=== PATIENT | female | born 1940 | race Caucasian/White ===

== ENCOUNTER → 2020-05-14 14:14 | Outpatient (BNVA) | payer SELFPAY | PROVIDERS: PCP Family Medicine; Referring Provider Family Medicine; Visit Provider Internal Medicine | DX: G45.9 Transient cerebral ischemic attack, unspecified (principal); Z51.81 Encounter for therapeutic drug level monitoring; Z79.01 Long term (current) use of anticoagulants | CPT/HCPCS: 85610; 99211 ==

== ENCOUNTER → 2020-07-22 14:14 | Outpatient (BNVA) | payer BC, SELFPAY | PROVIDERS: PCP Family Medicine; Visit Provider Internal Medicine | DX: G45.9 Transient cerebral ischemic attack, unspecified (principal); Z51.81 Encounter for therapeutic drug level monitoring; Z79.01 Long term (current) use of anticoagulants | CPT/HCPCS: 85610; 99211 ==

== ENCOUNTER 2020-07-28 12:33 | Outpatient (REF) | payer BC, SELFPAY ==
[2020-07-28 13:54] LABS: MANUAL DIFF FLAG NO
[2020-07-28 14:03] LABS: Basophils Absolute Auto 0.1 X10*3/uL (0.0-0.2); Basophils Percent Auto 0.6 % (0-2); Eosinophils Absolute Auto 0.2 X10*3/uL (0.0-0.4); Eosinophils Percent Auto 2.8 % (0-4); Hematocrit 42.7 % (37-47); Hemoglobin 13.6 g/dl (12.0-16.0); Imm Gran Abs Auto 0.02 X10*3/uL (0.00-0.03); Imm Gran Pct Auto 0.2 % (0.0-0.4); Lymphocytes Absolute Auto 1.8 X10*3/uL (1.2-4.9); Lymphocytes Percent Auto 21.9 % (20-40); Mean Corpuscular HGB Conc 31.9 g/dl (31.0-35.0); Mean Corpuscular Hemoglobin 28.8 pg (27.0-33.0); Mean Corpuscular Volume 90.5 fL (80-98); Monocytes Absolute Auto 0.5 X10*3/uL (0.1-1.2); Monocytes Percent Auto 5.5 % (2-11); Neutrophils Absolute Auto 5.7 X10*3/uL (2.0-8.3); Platelet Count 310 X10*3/uL (160-400); Red Blood Count 4.72 X10*6/uL (4.20-5.50); Red Cell Distribution Width 14.6 % (11.0-16.0); White Blood Count 8.2 X10*3/uL (4.8-10.8)
[2020-07-28 14:54] LABS: Albumin Level 4.1 g/dL (3.5-5.0); Anion Gap 13 (12-20); Blood Urea Nitrogen 28 mg/dL (9-16); Calcium 9.7 mg/dL (8.4-10.2); Carbon Dioxide 28 mmol/L (22-29); Chloride 103 mmol/L (96-108); Estimated Glomerular Filt Rate 33; Magnesium 1.9 mg/dL (1.6-2.6); Phosphorus 3.4 mg/dL (2.7-4.5); Potassium 4.5 mmol/L (3.3-5.1); Sodium 139 mmol/L (135-145)
[2020-07-28 14:59] LABS: Vitamin D 25-OH Total 18.4 ng/mL (>30)
[2020-07-28 15:12] LABS: Renal w Reflex Lab Use Only Order verified
[2020-07-30 12:07] LABS: Calcium (PTHI) 9.9 mg/dL (8.6-10.4); PTHI 97 pg/mL (14-64)
== END 2020-07-28 12:34 | disposition home or self-care (01) ==
LOC: HO.LAB 12:33
PROVIDERS: Visit Provider Internal Medicine Nephrology
DX: I12.9 Hypertensive chronic kidney disease with stage 1 through stage 4 chronic kidney disease, or unspecified chronic kidney disease (principal); N18.30 Chronic kidney disease, stage 3 unspecified
CPT/HCPCS: 36415; 80051; 82040; 82306; 82310; 82565; 83735; 83970; 84100; 84520; 85025

== ENCOUNTER 2020-07-29 14:01 | Outpatient (REF) | payer BC, SELFPAY ==
[2020-07-29 15:26] LABS: Glucose Urine UA NEG (NEG); Leukocyte Esterase Urine NEG (NEG); Nitrite Urine NEG (NEG); PH 5.5 (5.0-8.0); Specific Gravity - Urine >= 1.030 (1.005-1.025); Urine Blood 1+ (NEG); Urine Ketones NEG (NEG); Urine Protein NEG (NEG-TRACE)
[2020-07-29 15:38] LABS: Creatinine Urine 123.59 mg/dL; Microalbum/Creatinine Ratio Ur 18.6 ug/mg cr; Total Protein Urine Random < 7 mg/dL (<12)
[2020-07-29 16:10] LABS: Appearance Urine CLEAR; Color Urine YELLOW
[2020-07-29 17:01] LABS: RBC Urine 0 /HPF (0); WBC Urine 0-2 /HPF (0-4)
== END 2020-07-29 14:02 | disposition home or self-care (01) ==
LOC: HO.LNP 14:01
PROVIDERS: Visit Provider Internal Medicine Nephrology
DX: G45.9 Transient cerebral ischemic attack, unspecified (principal); Z79.01 Long term (current) use of anticoagulants; Z51.81 Encounter for therapeutic drug level monitoring
CPT/HCPCS: 81001; 81003; 82043; 84156

== ENCOUNTER → 2020-09-09 15:58 | Outpatient (BNVA) | payer BC, SELFPAY | PROVIDERS: PCP Family Medicine; Visit Provider Internal Medicine | DX: G45.9 Transient cerebral ischemic attack, unspecified (principal); Z79.01 Long term (current) use of anticoagulants; Z51.81 Encounter for therapeutic drug level monitoring | CPT/HCPCS: 85610; 99211 ==

== ENCOUNTER → 2020-09-24 14:56 | Outpatient (BNVA) | payer BC, SELFPAY | PROVIDERS: PCP Family Medicine; Visit Provider Internal Medicine | DX: G45.9 Transient cerebral ischemic attack, unspecified (principal); Z79.01 Long term (current) use of anticoagulants; Z51.81 Encounter for therapeutic drug level monitoring | CPT/HCPCS: 85610; 99211 ==

== ENCOUNTER → 2020-10-29 13:59 | Outpatient (BNVA) | payer BC, SELFPAY | PROVIDERS: PCP Family Medicine; Visit Provider Internal Medicine | DX: Z86.73 Personal history of transient ischemic attack (TIA), and cerebral infarction without residual deficits (principal); Z51.81 Encounter for therapeutic drug level monitoring; Z79.01 Long term (current) use of anticoagulants | CPT/HCPCS: 85610; 99211 ==

== ENCOUNTER → 2020-11-26 14:04 | Outpatient (BNVA) | payer BC, SELFPAY | PROVIDERS: PCP Family Medicine; Visit Provider Internal Medicine | DX: Z86.73 Personal history of transient ischemic attack (TIA), and cerebral infarction without residual deficits (principal); Z51.81 Encounter for therapeutic drug level monitoring; Z79.01 Long term (current) use of anticoagulants | CPT/HCPCS: 85610; 99211 ==

== ENCOUNTER → 2020-12-24 15:22 | Outpatient (BNVA) | payer BC, SELFPAY | PROVIDERS: PCP Family Medicine; Visit Provider Internal Medicine | DX: Z86.73 Personal history of transient ischemic attack (TIA), and cerebral infarction without residual deficits (principal); Z51.81 Encounter for therapeutic drug level monitoring; Z79.01 Long term (current) use of anticoagulants | CPT/HCPCS: 85610; 99211 ==

== ENCOUNTER → 2021-01-28 14:51 | Outpatient (BNVA) | payer BC, SELFPAY | PROVIDERS: PCP Internal Medicine; Visit Provider Internal Medicine | DX: Z86.73 Personal history of transient ischemic attack (TIA), and cerebral infarction without residual deficits (principal); Z51.81 Encounter for therapeutic drug level monitoring; Z79.01 Long term (current) use of anticoagulants | CPT/HCPCS: 85610; 99211 ==

== ENCOUNTER 2021-02-10 12:05 | Outpatient (REF) | payer BC, SELFPAY ==
[2021-02-10 12:47] LABS: MANUAL DIFF FLAG NO
[2021-02-10 12:50] LABS: Basophils Absolute Auto 0.1 X10*3/uL (0.0-0.2); Basophils Percent Auto 0.6 % (0-2); Eosinophils Absolute Auto 0.2 X10*3/uL (0.0-0.4); Eosinophils Percent Auto 2.7 % (0-4); Hematocrit 41.9 % (37-47); Hemoglobin 13.4 g/dl (12.0-16.0); Imm Gran Abs Auto 0.03 X10*3/uL (0.00-0.03); Imm Gran Pct Auto 0.4 % (0.0-0.4); Lymphocytes Absolute Auto 1.9 X10*3/uL (1.2-4.9); Lymphocytes Percent Auto 22.4 % (20-40); Mean Corpuscular Hemoglobin 29.1 pg (27.0-33.0); Mean Corpuscular Volume 90.9 fL (80-98); Mean Platelet Volume 9.2 fL (9.4-12.3); Monocytes Absolute Auto 0.6 X10*3/uL (0.1-1.2); Neutrophils Absolute Auto 5.6 X10*3/uL (2.0-8.3); Neutrophils Percent Auto 66.9 % (45-73); Platelet Count 285 X10*3/uL (160-400); Red Blood Count 4.61 X10*6/uL (4.20-5.50); Red Cell Distribution Width 14.6 % (11.0-16.0); White Blood Count 8.4 X10*3/uL (4.8-10.8)
[2021-02-10 13:14] LABS: Alanine Aminotransferase 25 U/L (0-31); Alkaline Phosphatase 105 U/L (39-117); Anion Gap 13 (12-20); Aspartate Amino Transferase 18 U/L (5-31); Bilirubin Total 0.3 mg/dL (0.0-1.0); Blood Urea Nitrogen 32 mg/dL (9-16); Calcium 9.6 mg/dL (8.4-10.2); Carbon Dioxide 26 mmol/L (22-29); Chloride 105 mmol/L (96-108); Estimated Glomerular Filt Rate 27; Glucose Random 172 mg/dL (60-115); Magnesium 2.2 mg/dL (1.6-2.6); Phosphorus 3.3 mg/dL (2.7-4.5); Sodium 139 mmol/L (135-145); Total Protein 6.4 g/dL (6.5-8.0)
[2021-02-10 13:34] LABS: Vitamin D 25-OH Total 19.1 ng/mL (>30)
[2021-02-10 13:56] LABS: Appearance Urine CLEAR; Color Urine YELLOW; Glucose Urine UA NEG (NEG); Leukocyte Esterase Urine NEG (NEG); Nitrite Urine NEG (NEG); Urine Blood TRACE (NEG); Urine Ketones NEG (NEG); Urine Protein NEG (NEG-TRACE)
[2021-02-10 14:19] LABS: Renal Epithelial Cells Urine TRACE /LPF; Squamous Epithelial Cell Urine TRACE /LPF
[2021-02-10 14:28] LABS: Creatinine Urine 81.92 mg/dL; Microalbum/Creatinine Ratio Ur 14.6 ug/mg cr; Total Protein Urine Random < 7 mg/dL (<12)
[2021-02-13 06:46] LABS: Calcium (PTHI) 9.3 mg/dL (8.6-10.4); PTHI 110 pg/mL (14-64)
== END 2021-02-10 12:06 | disposition home or self-care (01) ==
LOC: HO.LAB 12:05
PROVIDERS: PCP Internal Medicine; Visit Provider Internal Medicine Nephrology
DX: I12.9 Hypertensive chronic kidney disease with stage 1 through stage 4 chronic kidney disease, or unspecified chronic kidney disease (principal); N18.32 Chronic kidney disease, stage 3b
CPT/HCPCS: 36415; 80053; 81001; 81003; 82043; 82306; 83735; 83970; 84100; 84156; 85025

== ENCOUNTER → 2021-03-04 14:39 | Outpatient (BNVA) | payer BC, SELFPAY | PROVIDERS: PCP Internal Medicine; Visit Provider Internal Medicine | DX: Z86.73 Personal history of transient ischemic attack (TIA), and cerebral infarction without residual deficits (principal); Z51.81 Encounter for therapeutic drug level monitoring; Z79.01 Long term (current) use of anticoagulants | CPT/HCPCS: 85610; 99211 ==

== ENCOUNTER → 2021-05-09 14:51 | Outpatient (BNVA) | payer BC, SELFPAY | PROVIDERS: PCP Internal Medicine; Visit Provider Internal Medicine | DX: Z86.73 Personal history of transient ischemic attack (TIA), and cerebral infarction without residual deficits (principal); Z51.81 Encounter for therapeutic drug level monitoring; Z79.01 Long term (current) use of anticoagulants | CPT/HCPCS: 85610; 99211 ==

== ENCOUNTER → 2021-06-16 15:21 | Outpatient (BNVA) | payer BC, SELFPAY | PROVIDERS: PCP Internal Medicine; Visit Provider Internal Medicine | DX: Z86.73 Personal history of transient ischemic attack (TIA), and cerebral infarction without residual deficits (principal); Z51.81 Encounter for therapeutic drug level monitoring; Z79.01 Long term (current) use of anticoagulants | CPT/HCPCS: 85610; 99211 ==

== ENCOUNTER → 2021-07-26 14:55 | Outpatient (BNVA) | payer BC, SELFPAY | PROVIDERS: PCP Internal Medicine; Visit Provider Internal Medicine | DX: Z86.73 Personal history of transient ischemic attack (TIA), and cerebral infarction without residual deficits (principal); Z51.81 Encounter for therapeutic drug level monitoring; Z79.01 Long term (current) use of anticoagulants | CPT/HCPCS: 85610; 99211 ==

== ENCOUNTER → 2021-09-01 14:39 | Outpatient (BNVA) | payer BC, SELFPAY | PROVIDERS: PCP Internal Medicine; Visit Provider Internal Medicine | DX: Z86.73 Personal history of transient ischemic attack (TIA), and cerebral infarction without residual deficits (principal); Z51.81 Encounter for therapeutic drug level monitoring; Z79.01 Long term (current) use of anticoagulants | CPT/HCPCS: 85610; 99211 ==

== ENCOUNTER → 2021-10-10 13:24 | Outpatient (BNVA) | payer BC, SELFPAY | PROVIDERS: PCP Internal Medicine; Visit Provider Internal Medicine | DX: G45.9 Transient cerebral ischemic attack, unspecified (principal); Z79.01 Long term (current) use of anticoagulants; Z51.81 Encounter for therapeutic drug level monitoring | CPT/HCPCS: 85610; 99211 ==

== ENCOUNTER → 2021-10-27 14:02 | Outpatient (BNVA) | payer BC, SELFPAY | PROVIDERS: PCP Internal Medicine; Visit Provider Internal Medicine | DX: G45.9 Transient cerebral ischemic attack, unspecified (principal); Z79.01 Long term (current) use of anticoagulants; Z51.81 Encounter for therapeutic drug level monitoring | CPT/HCPCS: 85610; 99211 ==

== ENCOUNTER → 2021-12-26 14:03 | Outpatient (BNVA) | payer BC, SELFPAY | PROVIDERS: PCP Internal Medicine; Visit Provider Internal Medicine | DX: G45.9 Transient cerebral ischemic attack, unspecified (principal); Z51.81 Encounter for therapeutic drug level monitoring; Z79.01 Long term (current) use of anticoagulants | CPT/HCPCS: 85610; 99211 ==

== ENCOUNTER → 2022-01-27 14:05 | Outpatient (BNVA) | payer BC, SELFPAY | PROVIDERS: PCP Internal Medicine; Visit Provider Internal Medicine | DX: G45.9 Transient cerebral ischemic attack, unspecified (principal); Z51.81 Encounter for therapeutic drug level monitoring; Z79.01 Long term (current) use of anticoagulants | CPT/HCPCS: 85610; 99211 ==

== ENCOUNTER 2022-04-25 15:23 | Outpatient (REF) | payer BC, SELFPAY ==
[2022-04-25 15:56] LABS: MANUAL DIFF FLAG NO
[2022-04-25 16:50] LABS: Basophils Absolute Auto 0.1 X10*3/uL (0.0-0.2); Basophils Percent Auto 0.8 % (0-2); Eosinophils Absolute Auto 0.2 X10*3/uL (0.0-0.4); Eosinophils Percent Auto 2.5 % (0-4); Hematocrit 43.1 % (37.0-47.0); Hemoglobin 13.9 g/dl (12.0-16.0); Imm Gran Abs Auto 0.02 X10*3/uL (0.00-0.03); Imm Gran Pct Auto 0.2 % (0.0-0.4); Lymphocytes Absolute Auto 1.9 X10*3/uL (1.2-4.9); Lymphocytes Percent Auto 23.2 % (20-40); Mean Corpuscular HGB Conc 32.3 g/dl (31.0-35.0); Mean Corpuscular Hemoglobin 29.1 pg (27.0-33.0); Mean Corpuscular Volume 90.2 fL (80.0-98.0); Mean Platelet Volume 9.6 fL (9.4-12.3); Monocytes Absolute Auto 0.5 X10*3/uL (0.1-1.2); Monocytes Percent Auto 5.8 % (2-11); Neutrophils Absolute Auto 5.6 x10*3/uL (2.0-8.3); Neutrophils Percent Auto 67.5 % (45-73); Platelet Count 288 X10*3/uL (160-400); Red Blood Count 4.78 X10*6/uL (4.20-5.50); Red Cell Distribution Width 14.2 % (11.0-16.0); White Blood Count 8.3 X10*3/uL (4.8-10.8)
[2022-04-25 16:51] LABS: Appearance Urine Clear; Color Urine Yellow; Glucose Urine UA Negative (Negative); Leukocyte Esterase Urine Small (1+) (Negative); Nitrite Urine Negative (Negative); UMIC TRIGGER UA YES; Urine Blood Trace (Negative); Urine Ketones Trace mg/dL (Negative); Urine Protein Negative (Neg-Trace)
[2022-04-25 16:56] LABS: Bacteria Urine None Seen (None Seen); Hyaline Casts Urine 0-2 /LPF (0-2); Squamous Epithelial Cell Urine 0-2 /HPF (0-2)
[2022-04-25 17:04] LABS: Albumin Level 4.2 g/dL (3.5-5.0); Anion Gap 15 (12-20); Blood Urea Nitrogen 34 mg/dL (9-16); Calcium 9.9 mg/dL (8.4-10.2); Carbon Dioxide 24 mmol/L (22-29); Chloride 105 mmol/L (96-108); Estimated Glomerular Filt Rate 29; Magnesium 2.1 mg/dL (1.6-2.6); Phosphorus 3.4 mg/dL (2.7-4.5); Potassium 4.7 mmol/L (3.3-5.1); Sodium 139 mmol/L (135-145)
[2022-04-25 17:57] LABS: Creatinine Urine 146.24 mg/dL; Microalbum/Creatinine Ratio Ur 27.3 ug/mg cr; Total Protein Urine Random 13 mg/dL (<12)
[2022-04-28 13:06] LABS: Calcium (PTHI) 9.9 mg/dL (8.6-10.4); PTHI 115 pg/mL (16-77)
[2022-05-02 00:48] LABS: VITAMIN D (1,25 OH) D3 31 pg/mL; Vit D (1,25-Dihydroxy) Total 31 pg/mL (18-72); Vitamin D (1,25 OH) D2 <8 pg/mL
== END 2022-04-25 15:24 | disposition home or self-care (01) ==
LOC: HO.LAB 15:23
PROVIDERS: PCP Internal Medicine; Visit Provider Internal Medicine Nephrology
DX: I12.9 Hypertensive chronic kidney disease with stage 1 through stage 4 chronic kidney disease, or unspecified chronic kidney disease (principal); N18.32 Chronic kidney disease, stage 3b; N25.0 Renal osteodystrophy
CPT/HCPCS: 36415; 80051; 81001; 82040; 82043; 82310; 82565; 82652; 83735; 83970; 84100; 84156; 84520; 85025; 87086

== ENCOUNTER 2024-02-19 13:52 | Outpatient (REF) | payer BC, SELFPAY ==
[2024-02-19 14:22] LABS: MANUAL DIFF FLAG NO
[2024-02-19 15:13] LABS: Basophils Percent Auto 0.4 % (0-2); Eosinophils Absolute Auto 0.2 X10*3/uL (0.0-0.4); Eosinophils Percent Auto 1.9 % (0-4); Hemoglobin 13.4 g/dl (12.0-16.0); Imm Gran Abs Auto 0.03 X10*3/uL (0.00-0.03); Imm Gran Pct Auto 0.4 % (0.0-0.4); Lymphocytes Absolute Auto 1.6 X10*3/uL (1.2-4.9); Lymphocytes Percent Auto 18.5 % (20-40); Mean Corpuscular HGB Conc 32.7 g/dl (31.0-35.0); Mean Corpuscular Hemoglobin 30.2 pg (27.0-33.0); Mean Corpuscular Volume 92.6 fL (80.0-98.0); Mean Platelet Volume 9.3 fL (9.4-12.3); Monocytes Absolute Auto 0.6 X10*3/uL (0.1-1.2); Monocytes Percent Auto 6.8 % (2-11); Neutrophils Absolute Auto 6.2 x10*3/uL (2.0-8.3); Platelet Count 297 X10*3/uL (160-400); Red Blood Count 4.43 X10*6/uL (4.20-5.50); Red Cell Distribution Width 14.6 % (11.0-16.0); White Blood Count 8.6 X10*3/uL (4.8-10.8)
[2024-02-19 15:22] LABS: Appearance Urine Clear; Color Urine Yellow; Glucose Urine UA Negative (Negative); Leukocyte Esterase Urine Negative (Negative); Nitrite Urine Negative (Negative); PH 5.5 (5.0-9.0); Urine Blood Negative (Negative); Urine Ketones Negative (Negative); Urine Protein Negative (Neg-Trace)
[2024-02-19 15:48] LABS: Albumin Level 4.2 g/dL (3.5-5.0); Anion Gap 12 (12-20); Blood Urea Nitrogen 34 mg/dL (9-16); Calcium 10.2 mg/dL (8.4-10.2); Carbon Dioxide 26 mmol/L (22-29); Chloride 107 mmol/L (96-108); Estimated Glomerular Filt Rate 31; Magnesium 2.2 mg/dL (1.6-2.6); Phosphorus 3.4 mg/dL (2.7-4.5); Sodium 140 mmol/L (135-145)
[2024-02-19 15:59] LABS: Parathyroid Hormone Intact 131.8 pg/mL (8.7-77.1)
[2024-02-19 16:02] LABS: Creatinine Urine 76.29 mg/dL; Protein/Creatinine Ratio, Ur 0.12 (<0.2); Total Protein Urine Random 9 mg/dL (<12)
[2024-02-24 05:34] LABS: VITAMIN D (1,25 OH) D3 37 pg/mL; Vit D (1,25-Dihydroxy) Total 37 pg/mL (18-72); Vitamin D (1,25 OH) D2 <8 pg/mL
== END 2024-02-19 13:53 | disposition home or self-care (01) ==
LOC: HO.LAB 13:52
PROVIDERS: PCP Internal Medicine; Visit Provider Internal Medicine Nephrology
DX: N18.4 Chronic kidney disease, stage 4 (severe) (principal); N25.0 Renal osteodystrophy; I12.9 Hypertensive chronic kidney disease with stage 1 through stage 4 chronic kidney disease, or unspecified chronic kidney disease
CPT/HCPCS: 36415; 80051; 81003; 82040; 82310; 82565; 82570; 82652; 83735; 83970; 84100; 84156; 84520; 85025; 87086

== ENCOUNTER 2024-12-18 15:10 | Outpatient (REF) | payer BC, SELFPAY ==
[2024-12-18 15:35] LABS: MANUAL DIFF FLAG NO
--- OUTSIDE RECORDS SUMMARY | 2024-12-18 15:55 | XMS_ITS | Encounter Summary ---
Author Organization [facility] Address [address] [facility] [address] [place] [address] Phone Care Team Providers Care Flap Curer Name Role Phone Paola Maciel MD Primary Care Provider [phone]- [phone] Encounter Details Date Type Department Care Team (Late Contact Info) Description 08/23/2021 Telephone [facility] [address] [place] [address] [place] [phone] Vivek Almaraz MD [address] [facility] [address] [place] [phone] Social History Tobacco Use Types Packs/Day Years Used Date Smoking Tobacco: Former Cigarettes Q uit: 06/04/1966 Smokeless Tobacco: Never Comments:Smoking History Inf o:Every day Alcohol Use Standard Drinks/Week Comments Yes 0 (1 standard drink = 0.6 oz pure alcohol) Alcoholic Drinks/day: Occasional social drink Comments Unknown Sex and Gender Information Value Date Recorded Sex Assigned at Not on file Legal Sex Female 4:44 PM EST Gender Identity Not on file Sexual Orientation Not on file documented as of this encounter Miscellaneous Notes * Telephone Encounter - Sheryl Goodwin - 08/23/2021 3:44 PM EDT [facility] called, they are unable to fill farxiga for the pt because it needs a PA. Thank you documented in this encounter Plan of Treatment Upcoming Encounters Date Type Department Care Team (Late st Contact Info) Description 12/22/2024 2:00 PM EDT Office Visit [facility] [address] [place] [address] Vivek Almaraz MD [address] [facility] [address] [place] [address] documented as of this encounter Visit Diagnoses Not on filedocumented in this encounter Care Teams Flap Curer Relationship Specialty Start Date End Date Paola Maciel MD [address] [place] [address], [address] [place] [address] PCP - General Internal Medicine 02/14/21 documented as of this encounter
--- OUTSIDE RECORDS SUMMARY | 2024-12-18 15:55 | XMS_ITS | Patient Health Record ---
Author Organization [facility] lisa [place] Address [address] [place] [place] [address] Care Team Providers Care Ceo Na Name Role Phone Maciel, Paola Primary Care Provider Unavailabl e Brianda Uriostegui Unavailable [phone] Paul Dewey MD Unavailable Unavailable Allergies Allergen (clinical drug ingredient) Drug/Non Drug Allergy documented on EMR Reaction Allergy Type Onset Date Status adhesive tape (uncoded) rash Allergy Active Latex latex (uncoded) rash Allergy Acti ve Reason For Referral No Information Medications Medication SIG (Take, Route, Frequency, Duration) Notes Start Date End Date Status Synthroid 125 MCG Orally Once a day Active buPROPion HCl ER (XL) 450 MG Orally Active Losartan Potassium 25 MG Orally Once a day Active Atorvastatin Calcium 40 MG Orally Once a day Active ZyrTEC Active Ketorolac Tromethamine Not-Taking Jantoven 5 MG Orally Once a day Not-Taking Warfarin Sodium 5 MG 1 tablet Orally Onc e a day; Duration: 30 day(s) Active BuSpar Active PEG-3350/Electrolytes Not-Taking Social History Tobacco Use: Social History Observation Description Date Details (start date - stop date) Former Smoker NA - NA Tobacco Use/Smoking Question Answer Notes Are you a: former smoker Additional Findings: Tobacco Non-User Current no n-smoker Alcohol Screen Question Answer Notes Did you have a drink containing alcohol in the p ast year? No Points 0 Interpretation Negative Tobacco use other than smoking: Question Answer Notes Are you an other tobacco user? 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) Active confirmed Problem Equinus contracture of right ankle (M24.571) Active confirmed Problem PlantarFlexion o f metatarsal of left foot (M21.6X2) Active confirmed Plan Of Treatment Pending Test Test Name Order Date [id number] NAIL, 6 OR MORE 10/03/2018 [id number] NAIL, 6 OR MORE 01/27/2019 [id number] NAIL, 6 OR MORE 04/28/2019 [id number] DYSTROPHIC NAILS ANY # Insurance Providers Payer Name Payer Address Payer Phone Subscriber Number Group Number Insured Name Patient Relationship to Insured Coverage Start Date Coverage End Date [facility] [address] [place] [address] [id number] Shanae Mayorga Self - patient is the insured Medical (General) History Medical History History ICD Code Anxiety Back,Hip,and Knee pain CAD (Cholesterol) Cataracts Depression Gall bladder problems Headaches/Migraines Hypertension Kidney disease Psoriasis/eczema chronic sinusitis Stroke thyroid Measles Mumps Chicken pox Vertigo Surgical History Surgery Date(Month/Year) cataracts 2018 gall bladder thyroid tonsils 194 ovarian tumor 1961 appendix 1961
[2024-12-18 15:57] LABS: Hematocrit 43.1 % (37.0-47.0); Hemoglobin 13.6 g/dl (12.0-16.0); Imm Gran Abs Auto 0.03 X10*3/uL (0.00-0.03); Imm Gran Pct Auto 0.3 % (0.0-0.4); Lymphocytes Absolute Auto 1.7 X10*3/uL (1.2-4.9); Mean Corpuscular HGB Conc 31.6 g/dl (31.0-35.0); Mean Corpuscular Hemoglobin 28.2 pg (27.0-33.0); Mean Corpuscular Volume 89.4 fL (80.0-98.0); NRBC Abs Auto 0.000 X10*3/uL (0.0-0.012); NRBC Pct Auto 0.0 /100WBC (0.0-0.2); Platelet Count 303 X10*3/uL (160-400); Red Blood Count 4.82 X10*6/uL (4.20-5.50); White Blood Count 8.6 X10*3/uL (4.8-10.8)
[2024-12-18 16:48] LABS: PTH Intact Intraoperative 195.6 pg/mL (8.7-77.1)
[2024-12-18 16:51] LABS: Albumin Level 4.4 g/dL (3.5-5.0); Anion Gap 13 (12-20); Blood Urea Nitrogen 37 mg/dL (9-16); Calcium 9.4 mg/dL (8.4-10.2); Carbon Dioxide 25 mmol/L (22-29); Chloride 105 mmol/L (96-108); Estimated Glomerular Filt Rate 28; Magnesium 2.5 mg/dL (1.6-2.6); Potassium 4.9 mmol/L (3.3-5.1); Sodium 138 mmol/L (135-145)
== END 2024-12-18 15:11 | disposition home or self-care (01) ==
LOC: HO.LAB 15:10
PROVIDERS: PCP Internal Medicine; Visit Provider Internal Medicine Nephrology
DX: E11.22 Type 2 diabetes mellitus with diabetic chronic kidney disease (principal); I12.9 Hypertensive chronic kidney disease with stage 1 through stage 4 chronic kidney disease, or unspecified chronic kidney disease; N18.32 Chronic kidney disease, stage 3b; N25.0 Renal osteodystrophy
CPT/HCPCS: 36415; 80051; 82040; 82306; 82310; 82565; 83735; 83970; 84100; 84520; 85025

== ENCOUNTER 2024-12-19 12:13 | Outpatient (REF) | payer BC, SELFPAY ==
--- OUTSIDE RECORDS SUMMARY | 2024-12-19 12:17 | XMS_ITS | Clinical Summary ---
Author Organization [facility] Address [address] [address] Care Team Providers Care Behaviour Support Teacher Name Role Phone Paola Maciel MD Primary Care Provider +1- [phone] Allergies Active Allergy Reactions Criticality Noted Date Comments Levonorgestrel-Ethinyl Estrad Other (see comments) Low 09/25/2019 Medications buPROPion XL (WELLBUTRIN XL) 300 MG 24 hr tablet Take 1 tablet by mouth 1 (one) time each day 150 mg Active atorvastatin (LIPITOR) 20 MG tablet Take 40 mg by mouth daily Active busPIRone (BUSPAR) 5 MG tablet Take 7.5 mg by mouth in the morning. Active Cetirizine HCl (ZyrTEC ALLERGY) 10 MG capsule Take 1 capsule by mouth 1 (one) time each day Active docusate sodium (COLACE) 50 MG capsule Take by mouth twice a day Active levothyroxine (SYNTHROID, LEVOTHROID) 125 MCG tablet Take 1 tablet by mouth 1 (one) time each day 06/16/2020 Active losartan (COZAAR) 50 MG tablet Take 1 tablet by mouth 1 (one) time each day 06/16/2020 Active clopidogrel (PLAVIX) 75 MG tablet Take 75 mg by mouth 1 (one) time each day 04/07/2022 Active letrozole (FEMARA) 2.5 MG chemo tablet Take 2.5 mg by mouth in the morning. 07/13/2023 Active Active Problems Problem Noted Date Diagnosed Date Type 2 diabetes mellitus wit h diabetic chronic kidney disease 02/25/2024 Renal osteodystrophy 08/23/2021 Chronic kidney disease, stage 4 (severe) 021 Chronic kidney disease stage 3 08/05/2020 Hypertensive renal disease 08/05/2020 Stage 3b chronic kidney disease 08/05/2020 Ataxia 09/25/2019 Overview (08/05/2020): Last Assessment & Plan: Patient with a history of remote stroke in the past on chronic Coumadin without any head trauma with some weakness to almost about a week sounds like his left-sided weakness causing some lurching doubt its really a true cerebellar type infarct probably just due to weakness on the left side may be exacerbated by not exercising for quite some time will check B12 level comp panel if things worsen did discuss getting imaging as it is she probably had a mild right-sided stroke with left- sided neglect and could benefit from VNA and home physical therapy if things worsen especially if she starts falling since she is on Coumadin. Would need video [id number] for that to occur Left hemiparesis 09/25/2019 Overview (08/05/2020): Last Assessment & Plan: Story line for the patient sound like he has left-sided weakness leg more so than the arm but it is probably has some neglect from by right-sided insult in the brain combination old and may be somewhat new or just exacerbated by aging and lack of exercise. She will contact us if things get worse to consider imaging Disorder of breast 03/07/2018 Overview (08/05/2020): Last Assessment & Plan: Additional skin lesion that she is concerned about an upper medial right breast appears to be a cystic lesion similar to the sebaceous cyst in the upper left chest but is not red nontender does seem to have a central pore off to the side advised watch and wait without any squeezing the lesion. Sebaceous cyst 03/07/2018 Overview (08/05/2020): Last Assessment & Plan: Lengthy discussion with patient the fact that she is not going on culture by just had more inflammation than true infection did recommend is warm compresses to the area and can stop the antibiotic since it is bothering her. Did discuss this this is in a bad area which pressure can cause it to reactivate if continues to be a problem we can do an excision but this time would usually recommend still gets inflamed the second time before doing that Incipient senile cataract 12/10/2017 Overview (08/05/2020): Last Assessment & Plan: Patient for upcoming bilateral cataract surgery blood pressure well controlled. Also has depression well-controlled and hyperlipidemia and a very well-controlled hypothyroidism. She also has chronic Coumadin because of a stroke in 2004 while she was on aspirin. Need to stop medication prior to surgery Major depressive disorder 09/20/2017 Overview (08/05/2020): Last Assessment & Plan: Patient with doing's well with the medications provided by psychiatry and a psychologist regular visits we'll settle thoughts recommended increase regular exercise Renal insufficiency 09/20/2017 Overview (08/05/2020): Last Assessment & Plan: Reviewed labs with patient no signs or symptoms of obstruction or UTI Transient cerebral ischemia 08/23/2017 Hyperlipidemia 08/09/2017 Overview (08/05/2020): Last Assessment & Plan: On atorvastatin without any myalgias overdue for lipids Hypertensive disorder 08/09/2017 Overview (08/05/2020): Last Assessment & Plan: Pt for follow-up on blood pressure doing very well with medications very compliant also still on Coumadin for stroke prevention as she is had one in the past no bleeding problems denies chest pain or shortness of breath excellent blood pressure results continue same medication Hypothyroidism 08/09/2017 Overview (08/05/2020): Last Assessment & Plan: Medium high dose of Synthroid overdue for TSH but appears to be euthyroid Encounters Date Type Department Care Team Description 10/24/2024 Orders Only [facility] [address] [place] [address] Vivek Almaraz MD Stage 3b chronic kidney disease (HCC); Renal osteodystrophy; Hypertensive disorder; Type 2 diabetes mellitus with diabetic chronic kidney disease (HCC) from Last 3 Months Immunizations Immunization Administration Dates Next Due Influenza Split High Dose Pr eservative Free IM 03/07/2018,03/16/2017,02/03/2016 Influenza TIV (IM) 03/04/2015,03/13/2014 Influenza Vaccine, Quadrivalent, Adjuvanted 03/04 Pfizer SARS-COV-2 07/08/2020,06/17/2020 Pneumococcal Conjugate 13-Valent 04/08/2015,03/05 Pneumococcal Polysaccharide 03/27/2014 Td 01/11/2021 Zoster 09/20/2017 Family History Medical History Relation Comments Diabetes Child Heart disease Father Kidney disease Sibling Relation Status Comments Child Father Sibling Social History Tobacco Use Types Packs/Day Years [...] on file Sexual Orientation Not on file Last Filed Vital Signs Vital Sign Reading Time Taken Comments Blood Pressure 140/60 02/25/2024 4:02 PM EDT Pulse 74 02/25/2024 4:02 PM EDT Temperature - - Respiratory Rate - - Oxygen Saturation 97% 02/25/2024 4:02 PM EDT Inhaled Oxygen Concentration - - Weight 81.6 kg (180 lb) 02/25/2024 4:02 PM EDT Height 160 cm (5' 3 ) 02/14/2021 2:47 PM EDT Body Mass Index 31.89 02/14/2021 2:47 PM EDT Plan of Treatment Upcoming Encounters Date Type Department Care Team (Late st Contact Info) Description 12/22/2024 2:00 PM EDT Office Visit [facility] [address] [place] [address] Vivek Almaraz MD [address] [facility] [address] [place] [address] Health Maintenance Due Date Last Done Comments Diabetes: Ophthalmology Exam 02/25/2024 Diabetes: Pedal Pulse Checked 02/25/2024 Diabetes: Sensory Foot Exam 02/25/2024 Diabetes: Visual Foot Exam 02/25/2024 Diabetes: Hemoglobin A1C 09/15/2024 06/17/2024 Influenza Vaccine (#1) 2025 , 03/17/2022, 03/07/2018, Additional history exists Pneumococcal Vaccine: 50+ Years Completed 04/08/2015, 03/26/2015, 03/27/2014 Pneumococcal Vaccine: Peds (0 to 5 Years) and At-Risk Patients (6 to 49 Years) Discontinued 04/08/2015, 03/26/2015, 03/27/2014 Hepatitis B Vaccine Aged Out No longe r eligible based on patient's age to complete this topic Procedures Procedure Name Priority Date/Time Associated Diagnosis Comments CREATININE, BLOOD Routine 12/18/2024 3:3 4 PM EDT BUN Routine 12/18/2024 3:34 PM EDT ELECTROLYTE PANEL Routine 12/18/2024 3:3 4 PM EDT PTH, INTRAOPERATIVE Routine 12/18/2024 3 :34 PM EDT CBC AND DIFFERENTIAL Routine 12/18/2024 3:34 PM EDT CALCIUM Routine 12/18/2024 3:34 PM EDT Stage 3b chronic kidney disease (HCC) Renal osteodystrophy Hypertensive disorder Type 2 diabetes mellitus with diabetic chronic kidney disease (HCC) ALBUMIN Routine 12/18/2024 3:34 PM EDT Stage 3b chronic kidney disease (HCC) Renal osteodystrophy Hypertensive disorder Type 2 diabetes mellitus with diabetic chronic kidney disease (HCC) MAGNESIUM Routine 12/18/2024 3:34 PM EDT Stage 3b chronic kidney disease (HCC) Renal osteodystrophy Hypertensive disorder Type 2 diabetes mellitus with diabetic chronic kidney disease (HCC) PHOSPHATE ( PHOSPHORUS) Routine 12/18/2024 3:34 PM EDT Stage 3b chronic kidney disease (HCC) Renal osteodystrophy Hypertensive disorder Type 2 diabetes mellitus with diabetic chronic kidney disease (HCC) VITAMIN D 25 HYDROXY Routine 12/18/2024 3:34 PM EDT Stage 3b chronic kidney disease (HCC) Renal osteodystrophy Hypertensive disorder Type 2 diabetes mellitus with diabetic chronic kidney disease (HCC) from Last 3 Months Results * (ABNORMAL) PTH, Intraoperative (12/18/2024 3:34 PM EDT) Intraoperative PTH 195.6(H) 8.7 - 77.1 pg/mL See order comments 12/18/2024 3:34 PM EDT 12/18/2024 3:34 PM EDT Vivek Almaraz MD LAB BLOOD ORDERABLES Final Re sult Performing Organization Address [facility] Co de Phone Number [place] See order comments [place] [address] * (ABNORMAL) Creatinine (12/18/2024 3:34 PM EDT) Creatinine Serum 1.73(H) 0.5 - 1.4 mg/dL See order comments eGFR (Calc) 28 See orde r comments Comment: Chronic Kidney Disease: Estimated GFR < 60 mL/min/1.73m2 Severe Kidney Disease: Estimated GFR < 15 mL/min/1.73m2 12/18/2024 3:34 PM EDT 12/18/2024 3:34 PM EDT Vivek Almaraz MD LAB BLOOD ORDERABLES Final Re sult Performing Organization Address [facility] Co de Phone Number [place] See order comments [place] [address] * Vitamin D 25 Hydroxy (12/18/2024 3:34 PM EDT) Vitamin D, 25-Hydroxy 47.1 >30 ng/mL See order comments Comment: Health Based Reference Values* < 20 ng/mL Deficient 20-30 ng/mL Insufficient > 30 ng/mL Sufficient *Krystian GONSALEZ. N Engl J Med. 2007;357:266-280 There is no well-established upper level of normal vitamin D levels. Some laboratories use 50 ng/mL as an upper limit of normal. However, toxicity is patient-dependent and may occur at any level. Careful correlation with the patient's presentation is necessary and, if there is concern for vitamin D toxicity, treatment should be considered irrespective of the serum level. Care must be taken in interpreting Vitamin D results from different laboratories and methodologies. Published data demonstrated that results from patients undergoing hemodialysis may show a negative bias when tested with various automated 25-OH vitamin D assays when compared to LC-MS/MS. When testing samples from patients whose predominant form of Vitamin D is Vitamin D2, such as patients receiving Vitamin D2 supplementation, results that are subtherapeutic should be confirmed with another method such as LC-MS/MS. Blood specimen (specimen) Venous blood / Unknown 12/18/2024 3:34 PM EDT 12/18/2024 3:34 PM EDT us Vivek Almaraz MD LAB BLOOD ORDERABLES Final Re sult [place] See order comments [place] [address] * (ABNORMAL) CBC and Differential (12/18/2024 3:34 PM EDT) WBC 8.6 4.8 - 10.8 X10*3/uL See order comments RBC 4.82 4.20 - 5.50 X10*6/uL See order comments Hgb 13.6 12.0 - 16.0 g/dl See order comments Hematocrit 43.1 37.0 - 47.0 % See order comments MCV 89.4 80.0 - 98.0 fL See order comments MCH 28.2 27.0 - 33.0 pg See order comments MCHC 31.6 31.0 - 35.0 g/dl See order comments RDW 14.6 11.0 - 16.0 % See order comments Platelets 303 160 - 400 X10*3/uL See order comments MPV 9.2(L) 9.4 - 12.3 fL See order comments Neutrophils % Auto 71.0 45 - 73 % See order comments Immature Granulocytes 0.3 0.0 - 0.4 % See order comments Lymphocytes Relative 19.4(L) 20 - 40 % See order comments Monocytes 6.3 2 - 11 % See order comments Eosinophils Relative 2.3 0 - 4 % See order comments Basophils Relative 0.7 0 - 2 % See order comments nRBC Count 0.0 0.0 - 0.2 /100WBC See order comments Neutrophils Absolute 6.1 2.0 - 8.3 x10*3/uL See order comments Immature Grans (Absolute) 0.03 0.00 - 0.03 X10*3/uL See order comments Lymphocytes Absolute 1.7 1.2 - 4.9 X10*3/uL See order comments Monocytes Absolute 0.5 0.1 - 1.2 X10*3/uL See order comments Eosinophils Absolute 0.2 0.0 - 0.4 X10*3/uL See order comments Basophils Absolute 0.1 0.0 - 0.2 X10*3/uL See order comments NRBC Absolute 0.000 0.0 - 0.012 X10*3/uL See order comments 12/18/2024 3:34 PM EDT 12/18/2024 3:34 PM EDT us Vivek Almaraz MD LAB BLOOD ORDERABLES Final Re sult Performing Organization Address City/State/[facility] Co de Phone Number [place] See order comments [place] [address] * (ABNORMAL) BUN (12/18/2024 3:34 PM EDT) BUN 37(H) 9 - 16 mg/dL See order comments 12/18/2024 3:34 PM EDT 12/18/2024 3:34 PM EDT us Vivek Almaraz MD LAB BLOOD ORDERABLES Final Re sult Performing Organization Address City/State/[facility] Co de Phone Number [place] See order comments [place] [address] * Phosphorus (12/18/2024 3:34 PM EDT) Phosphorus, Serum 4.3 2.7 - 4.5 mg/dL See order comments Blood specimen (specimen) Venous blood / Unknown 12/18/2024 3:34 PM EDT 12/18/2024 3:34 PM EDT us Vivek Almaraz MD LAB BLOOD ORDERABLES Final Re sult Performing Organization Address [facility] Phone Number [place] See order comments [place] [address] * Magnesium (12/18/2024 3:34 PM EDT) Magnesium 2.5 1.6 - 2.6 mg/dL See order comments Blood specimen (specimen) Venous blood / Unknown 12/18/2024 3:34 PM EDT 12/18/2024 3:34 PM EDT us Vivek Almaraz MD LAB BLOOD ORDERABLES Final Re sult Performing Organization Address [facility] Phone Number [place] See order comments [place] [address] * Calcium (12/18/2024 3:34 PM EDT) Calcium 9.4 8.4 - 10.2 mg/dL See order comments Blood specimen (specimen) Venous blood / Unknown 12/18/2024 3:34 PM EDT 12/18/2024 3:34 PM EDT us Vivek Almaraz MD LAB BLOOD ORDERABLES Final Re sult Performing Organization Address [facility] Phone Number [place] See order comments [place] [address] * Albumin (12/18/2024 3:34 PM EDT) Albumin 4.4 3.5 - 5.0 g/dL See order comments Blood specimen (specimen) Venous blood / Unknown 12/18/2024 3:34 PM EDT 12/18/2024 3:34 PM EDT us Vivek Almaraz MD LAB BLOOD ORDERABLES Final Re sult Performing Organization Address [facility]/ZIP Co de Phone Number [place] See order comments [place] [address] * Electrolyte panel (12/18/2024 3:34 PM EDT) Sodium 138 135 - 145 mmol/L See order comments Potassium 4.9 3.3 - 5.1 mmol/L See order comments Chloride 105 96 - 108 mmol/L See order comments Bicarbonate (CO2) 25 22 - 29 mmol/L See order comments Anion Gap 13 12 - 20 See order comments 12/18/2024 3:34 PM EDT 12/18/2024 3:34 PM EDT us Vivek Almaraz MD LAB BLOOD ORDERABLES Final Re sult [place] See order comments [place] [address] from Last 3 Months Insurance [facility] Care Teams Behaviour Support Teacher Relationship Specialty Start Date End Date Paola Maciel MD [address] [place] [address], [address] [place] [address] PCP - General Internal Medicine 02/14/21
--- OUTSIDE RECORDS SUMMARY | 2024-12-19 12:17 | XMS_ITS | Patient Health Record ---
Author Organization [facility] lisa [place] Address [address] [facility] [place] [address] Care Team Providers Care Recovery Operator Helper Name Role Phone Maciel, Paola Primary Care Provider Unavailabl e Brianda Uriostegui Unavailable [phone] Paul Dewey MD Unavailable Unavailable Allergies Allergen [...] Problem Acquired hammer toe of right foot (710556749445 9105) Other hammer toe(s) (acquired), right foot (M20.41) Active confirmed Problem Acquired hammer toe of left foot (857620974410 9103) Other hammer toe(s) (acquired), left foot (M20.42) Active confirmed Problem 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) Active confirmed Problem Equinus contracture of right ankle (M24.571) Active confirmed Problem PlantarFlexion o f metatarsal of left foot (M21.6X2) Active confirmed Plan Of Treatment Pending Test Test Name Order Date [id number] NAIL, 6 OR MORE 10/03/2018 [id number] NAIL, 6 OR MORE 01/27/2019 [id number] NAIL, 6 OR MORE 04/28/2019 [id number] DYSTROPHIC NAILS ANY # Insurance Providers Payer Name Payer Address Payer Phone Subscriber Number Group Number Insured Name Patient Relationship to Insured Coverage Start Date Coverage End Date [facility] [address] [place] [address] [id number] Shanae Mayorga Self - patient is the [...]
[2024-12-19 12:56] LABS: Appearance Urine Clear; Glucose Urine UA >=1000 mg/dL (Negative); PH 5.5 (5.0-9.0); Specific Gravity - Urine 1.015 (1.005-1.025); UMIC TRIGGER UA YES
[2024-12-19 13:41] LABS: Microalbum/Creatinine Ratio Ur 10.6 ug/mg cr (<30); Total Protein Urine Random < 7 mg/dL (<12)
== END 2024-12-19 12:14 | disposition home or self-care (01) ==
LOC: HO.LNP 12:13
PROVIDERS: Visit Provider Internal Medicine Nephrology
DX: E11.22 Type 2 diabetes mellitus with diabetic chronic kidney disease (principal); N18.32 Chronic kidney disease, stage 3b; N25.0 Renal osteodystrophy; I10 Essential (primary) hypertension
CPT/HCPCS: 81001; 82043; 82570; 84156